=== PATIENT | female | born 1990 | race Caucasian/White ===

== ENCOUNTER 2017-02-28 13:06 | Emergency (ER) | payer MEDICARE, OTHER | END 2017-02-28 14:32 | disposition home or self-care (01) | LOC: ER 13:06 | DX: B07.9 Viral wart, unspecified (principal); I42.9 Cardiomyopathy, unspecified; Z97.8 Presence of other specified devices; Z88.2 Allergy status to sulfonamides; Z88.1 Allergy status to other antibiotic agents; Z79.899 Other long term (current) drug therapy | CPT/HCPCS: 99282 ==